=== PATIENT | female | born 1955 | race Hispanic/Latino ===

== ENCOUNTER 2021-02-10 18:22 | Inpatient (IN) | payer OTHER, MEDICARE ==
[~2021-02-10] VITALS: Ht 157.5 cm; Wt 84.2 kg
[2021-02-10 18:29] VITALS: BP 183/88
[2021-02-10] MEDS ORDERED: PROMETHAZINE HCL 25 MG/ML 1ML AMPULE IM ONE (18:45)
[2021-02-10] MEDS ORDERED: LIDOCAINE HCL 2% VISCOUS 15 ML UDCUP PO ONE (18:45)
[2021-02-10] MEDS ORDERED: MORPHINE 4 MG SYG IVP ONE (18:45)
[2021-02-10] MEDS ORDERED: NACL 0.9% 1000ML 1,000 ML IV ONE (18:45)
[2021-02-10] MEDS ORDERED: FAMOTIDINE 20MG VIAL IV ONE (18:45)
[2021-02-10 19:03] LABS: APPEARANCE,URINE Clear (CLEAR); BILIRUBIN,URINE Negative (NEGATIVE); COLOR,URINE Yellow (YELLOW); GLUCOSE, URINE (UA) Negative (NEGATIVE); KETONES,URINE Trace mg/dL (NEGATIVE); LEUKOCYTE ESTERASE ,URINE Moderate (NEGATIVE); NITRATE,URINE Negative (NEGATIVE); OCCULT BLOOD,URINE Negative (NEGATIVE); PROTEIN,URINE Negative (NEGATIVE)
[2021-02-10 19:07] LABS: BASOPHILS % (AUTO) 0.3 % (0.0-5.0); EOSINOPHILS % (AUTO) 0.6 % (0.0-8.0); HEMATOCRIT 45.6 % (36-48); MEAN CORPUSCULAR HEMOGLOBIN 28.7 pg (27.0-33.0); MEAN CORPUSCULAR HGB CONC 32.5 g/dL (32.0-36.0); MEAN CORPUSCULAR VOLUME 88.5 fL (79-99); MONOCYTES % (AUTO) 3.7 % (3.0-13.0); NEUTROPHILS % (AUTO) 89.8 % (40.0-77.0); PLATELET COUNT (AUTO) 235 K/uL (130-400); RED BLOOD CELL COUNT(AUTO) 5.15 MIL/uL (4.00-5.50); RED CELL DISTRIBUTION WIDTH 12.8 % (11.0-15.5); WHITE BLOOD COUNT (AUTO) 18.1 K/uL (4.8-10.8)
[2021-02-10 19:13] LABS: RBC,URINE 0-1 /HPF (0-1)
[2021-02-10 19:14] LABS: BACTERIA,URINE Rare /HPF (None Seen); MUCUS,URINE Rare LPF (None Seen); SQUAMOUS EPITHELIAL CELL,UR Rare /HPF (0-2); TRANSITIONAL EPI CELLS,URINE Rare /HPF (None Seen)
[2021-02-10 19:17] LABS: CREATININE 0.9 mg/dL (0.5-1.5)
[2021-02-10 19:22] LABS: ALBUMIN 3.9 g/dL (3.5-5.0); BILIRUBIN,TOTAL 1.4 mg/dL (0.2-1.0); TOTAL PROTEIN, SERUM 8.4 g/dL (6.0-8.3)
[2021-02-10] MEDS ORDERED: MAG/ALUM/SIMETH 30 ML UDCUP ONE (19:37)
[2021-02-10] MEDS ORDERED: ONDANSETRON 4MG INJ ONE (19:37)
[2021-02-10] MEDS ORDERED: PIP/TAZ ZOSYN 3.375G 3.375 GM VIAL IVPB ONE (20:45)
[2021-02-10] MEDS ORDERED: 0.9% NACL 50ML 50 ML IV.SOLN. IV ONE (20:45)
[2021-02-10] MEDS ORDERED: KCL 20 MEQ ERTAB PO ONE (20:45)
[2021-02-10] MEDS ORDERED: ZOSYN 3.375GM+NS 50ML 50 ML IV ONE (21:00)
[2021-02-10] MEDS ORDERED: 0.9%NACL 100ML 100 ML ONE (21:07)
[2021-02-10] MEDS ORDERED: IOHEXOL 350 MG/ML 100ML INFUS..BTL IV ONE (21:28)
[2021-02-10] MEDS: METRONIDAZOLE 500MG/100ML BAG 100 ML IV SCH (22:00)
[2021-02-10] MEDS ORDERED: ACETAMINOPHEN 325 MG TAB PO PRN ×2 (22:00)
[2021-02-10] MEDS ORDERED: NITROGLYCERIN 0.4 MG SL TAB SL PRN (22:00)
[2021-02-10] MEDS ORDERED: GUAIFENESIN-DM 200/20 MG 10 ML PO PRN (22:00)
[2021-02-10] MEDS ORDERED: KETOROLAC 15MG/ML VIAL (15MG/ML) IM SCH (22:15)
[2021-02-10] MEDS ORDERED: POTASSIUM CHLORIDE 10% ELIXIR 20 MEQ/15 ML UDCUP PO PRN (22:15)
[2021-02-10] MEDS ORDERED: DEXTROSE 50%-WATER 50 ML DISP.SYRIN IV PRN (22:15)
[2021-02-10] MEDS ORDERED: GLUCAGON 1MG KIT 1 MG ML IM PRN (22:15)
[2021-02-10 22:17] VITALS: BP 159/75
[2021-02-10] MEDS: NACL 0.9% 1000ML 1,000 ML IV SCH (23:19)
[2021-02-10] MEDS: HYDROMORPHONE 1 MG INJ IV PRN (23:19)
[2021-02-11] VITALS (7 sets, daily range): BP systolic 133–160; BP diastolic 61–89
[2021-02-11] MEDS: NACL 0.9% 1000ML 1,000 ML IV SCH ×3 (03:05→18:00)
[2021-02-11] MEDS: METRONIDAZOLE 500MG/100ML BAG 100 ML IV SCH ×3 (06:00→22:00)
[2021-02-11] MEDS: KCL 20 MEQ ERTAB PO PRN (06:53)
[2021-02-11 07:00] LABS: HEMATOCRIT 41.5 % (36-48); MEAN CORPUSCULAR HEMOGLOBIN 29.4 pg (27.0-33.0); MEAN CORPUSCULAR HGB CONC 32.5 g/dL (32.0-36.0); MEAN CORPUSCULAR VOLUME 90.4 fL (79-99); RED BLOOD CELL COUNT(AUTO) 4.59 MIL/uL (4.00-5.50); RED CELL DISTRIBUTION WIDTH 13.3 % (11.0-15.5); WHITE BLOOD COUNT (AUTO) 13.3 K/uL (4.8-10.8)
[2021-02-11] MEDS ORDERED: LABETALOL 20MG SYG IV PRN (07:00)
[2021-02-11] MEDS ORDERED: CEFTRIAXONE 2GM VIAL IVP SCH (07:00)
[2021-02-11 07:14] LABS: ALBUMIN 3.1 g/dL (3.5-5.0); BILIRUBIN,TOTAL 1.1 mg/dL (0.2-1.0); CREATININE 0.8 mg/dL (0.5-1.5); POTASSIUM 4.1 mmol/L (3.5-5.1); TOTAL PROTEIN, SERUM 6.9 g/dL (6.0-8.3)
[2021-02-11] MEDS: INSULIN HUMULIN R 100 UNIT/ML 3ML SQ SCH ×3 (07:30→21:00)
[2021-02-11] MEDS: HYDROMORPHONE 1 MG INJ IV PRN (08:04)
[2021-02-11] MEDS: ENOXAPARIN SODIUM 40 MG/0.4 ML SYRINGE SQ SCH (08:05)
[2021-02-11] MEDS: ONDANSETRON 4MG INJ IV PRN (08:05)
[2021-02-11] MEDS: FAMOTIDINE 20MG VIAL IV SCH ×2 (08:06→09:12)
[2021-02-11] MEDS ORDERED: PIP/TAZ ZOSYN 3.375G 3.375 GM VIAL IVPB SCH (08:15)
[2021-02-11] MEDS ORDERED: 0.9% NACL 50ML 50 ML IV SCH (08:30)
[2021-02-11] MEDS: ASPIRIN 81MG CHEW TAB PO SCH (10:43)
[2021-02-11] MEDS ORDERED: GADOTERATE MEGLUMINE 10 MMOL/20 ML VIAL IV ONE (10:57)
[2021-02-11 11:24] LABS: CHOLESTEROL 180 mg/dL (<200); HDL CHOLESTEROL 80 mg/dL (35-85); LDL DIRECT 87 mg/dL (0-99); TRIGLYCERIDES 43 mg/dL (30-200)
[2021-02-11 11:43] LABS: INR 1.05 (0.85-1.15); PROTHROMBIN TIME 11.4 SEC (9.6-11.6)
[2021-02-11 11:45] LABS: PARTIAL THROMBOPLASTIN TIME 33.4 SEC (26.3-35.5)
[2021-02-11] MEDS ORDERED: ZOSYN 3.375GM+NS 50ML 50 ML IV ONE (14:22)
[2021-02-11] MEDS: ZOSYN 3.375 IV SCH ×2 (14:31→22:03)
[2021-02-11] MEDS: HYDROMORPHONE 0.5 MG SYG (0.5MG/0.5ML) IVP PRN ×2 (16:32→22:05)
[2021-02-11] MEDS: ATORVASTATIN 20 MG TABLET PO SCH (22:04)
[2021-02-11] MEDS: ZOLPIDEM TARTRATE 5 MG TAB PO PRN (22:05)
[2021-02-12] VITALS (7 sets, daily range): BP systolic 122–172; BP diastolic 68–86
[2021-02-12] MEDS: NACL 0.9% 1000ML 1,000 ML IV SCH ×4 (00:40→21:00)
[2021-02-12] MEDS: HYDROMORPHONE 0.5 MG SYG (0.5MG/0.5ML) IVP PRN ×3 (05:03→22:58)
[2021-02-12 07:03] LABS: BASOPHILS % (AUTO) 0.1 % (0.0-5.0); EOSINOPHILS % (AUTO) 0.5 % (0.0-8.0); HEMATOCRIT 40.5 % (36-48); LYMPHOCYTES % (AUTO) 5.4 % (21.0-51.0); MEAN CORPUSCULAR HEMOGLOBIN 28.9 pg (27.0-33.0); MEAN CORPUSCULAR HGB CONC 31.9 g/dL (32.0-36.0); MEAN CORPUSCULAR VOLUME 90.6 fL (79-99); MONOCYTES % (AUTO) 4.9 % (3.0-13.0); NEUTROPHILS % (AUTO) 88.7 % (40.0-77.0); PLATELET COUNT (AUTO) 188 K/uL (130-400); RED BLOOD CELL COUNT(AUTO) 4.47 MIL/uL (4.00-5.50); RED CELL DISTRIBUTION WIDTH 13.6 % (11.0-15.5)
[2021-02-12 07:14] LABS: CREATININE 0.7 mg/dL (0.5-1.5); MAGNESIUM 1.7 mg/dL (1.80-2.40); POTASSIUM 3.8 mmol/L (3.5-5.1)
[2021-02-12] MEDS: INSULIN HUMULIN R 100 UNIT/ML 3ML SQ SCH ×4 (07:30→21:00)
[2021-02-12] MEDS ORDERED: ZOSYN 3.375GM+NS 50ML 50 ML IV ONE (08:36)
[2021-02-12] MEDS: METRONIDAZOLE 500MG/100ML BAG 100 ML IV SCH ×3 (08:45→22:36)
[2021-02-12] MEDS: FAMOTIDINE 20MG VIAL IV SCH ×2 (09:00→09:43)
[2021-02-12] MEDS: ASPIRIN 81MG CHEW TAB PO SCH (09:43)
[2021-02-12] MEDS: ENOXAPARIN SODIUM 40 MG/0.4 ML SYRINGE SQ SCH (09:46)
[2021-02-12] MEDS ORDERED: HYDROMORPHONE 1 MG INJ IV PRN (10:15)
[2021-02-12] MEDS: ONDANSETRON 4MG INJ IV PRN (11:07)
[2021-02-12 14:27] LABS: BASOPHILS % (AUTO) 0.3 % (0.0-5.0); EOSINOPHILS % (AUTO) 1.1 % (0.0-8.0); HEMATOCRIT 39.3 % (36-48); LYMPHOCYTES % (AUTO) 6.8 % (21.0-51.0); MEAN CORPUSCULAR HGB CONC 31.6 g/dL (32.0-36.0); MONOCYTES % (AUTO) 5.5 % (3.0-13.0); NEUTROPHILS % (AUTO) 85.9 % (40.0-77.0); PLATELET COUNT (AUTO) 173 K/uL (130-400); RED BLOOD CELL COUNT(AUTO) 4.27 MIL/uL (4.00-5.50); RED CELL DISTRIBUTION WIDTH 13.5 % (11.0-15.5); WHITE BLOOD COUNT (AUTO) 13.7 K/uL (4.8-10.8)
[2021-02-12 14:33] LABS: CREATININE 0.8 mg/dL (0.5-1.5); POTASSIUM 3.8 mmol/L (3.5-5.1)
[2021-02-12 14:37] LABS: ALBUMIN 2.5 g/dL (3.5-5.0); BILIRUBIN,TOTAL 1.4 mg/dL (0.2-1.0); TOTAL PROTEIN, SERUM 6.1 g/dL (6.0-8.3)
[2021-02-12] MEDS: HYDROMORPHONE 1 MG INJ IVP SCH ×5 (17:04→22:33)
[2021-02-12] MEDS: KETOROLAC 30MG VIAL (30MG/ML) IV SCH (18:00)
[2021-02-12] MEDS: 0.9% NACL 50ML 50 ML IV SCH (21:02)
[2021-02-12] MEDS: ATORVASTATIN 20 MG TABLET PO SCH (21:03)
[2021-02-12] MEDS: ZOSYN 3.375GM +NS 50ML IV SCH (21:03)
[2021-02-13] MEDS: KETOROLAC 30MG VIAL (30MG/ML) IV SCH ×5 (00:10→23:28)
[2021-02-13] MEDS ORDERED: ATOR10 PO (00:18)
[2021-02-13] MEDS ORDERED: AEC81 PO (00:18)
[2021-02-13] MEDS: HYDROMORPHONE 1 MG INJ IVP SCH ×11 (00:33→21:51)
[2021-02-13] MEDS: NACL 0.9% 1000ML 1,000 ML IV SCH ×3 (02:58→18:31)
[2021-02-13] MEDS: HYDROMORPHONE 0.5 MG SYG (0.5MG/0.5ML) IVP PRN (03:14)
[2021-02-13 03:48] VITALS: BP 156/83
[2021-02-13] MEDS: 0.9% NACL 50ML 50 ML IV SCH ×2 (05:01→14:32)
[2021-02-13] MEDS: ZOSYN 3.375GM +NS 50ML IV SCH ×2 (05:01→14:32)
[2021-02-13 05:03] LABS: HEMATOCRIT 36.7 % (36-48); MEAN CORPUSCULAR HEMOGLOBIN 29.7 pg (27.0-33.0); MEAN CORPUSCULAR HGB CONC 32.4 g/dL (32.0-36.0); MEAN CORPUSCULAR VOLUME 91.5 fL (79-99); RED BLOOD CELL COUNT(AUTO) 4.01 MIL/uL (4.00-5.50); RED CELL DISTRIBUTION WIDTH 13.4 % (11.0-15.5); WHITE BLOOD COUNT (AUTO) 12.7 K/uL (4.8-10.8)
[2021-02-13 05:16] LABS: ALBUMIN 2.3 g/dL (3.5-5.0); BILIRUBIN,TOTAL 1.1 mg/dL (0.2-1.0); CREATININE 0.6 mg/dL (0.5-1.5); POTASSIUM 3.6 mmol/L (3.5-5.1)
[2021-02-13] MEDS: METRONIDAZOLE 500MG/100ML BAG 100 ML IV SCH ×2 (05:56→14:32)
[2021-02-13] MEDS: INSULIN HUMULIN R 100 UNIT/ML 3ML SQ SCH ×4 (06:46→21:00)
[2021-02-13 07:30] VITALS: BP 135/61
[2021-02-13] MEDS: ASPIRIN 81MG CHEW TAB PO SCH (09:00)
[2021-02-13] MEDS: FAMOTIDINE 20MG VIAL IV SCH ×2 (09:00→11:04)
[2021-02-13] MEDS: ENOXAPARIN SODIUM 40 MG/0.4 ML SYRINGE SQ SCH (09:00)
[2021-02-13 11:00] VITALS: BP 156/84
[2021-02-13] MEDS ORDERED: IOHEXOL-350 75 ML VIAL IV ONE (14:39)
[2021-02-13 16:00] VITALS: BP 176/76
[2021-02-13] MEDS: ONDANSETRON 4MG INJ IV PRN (18:30)
[2021-02-13 20:22] VITALS: BP 161/80
[2021-02-13] MEDS: ATORVASTATIN 20 MG TABLET PO SCH (21:00)
[2021-02-13 23:25] VITALS: BP 150/71
[2021-02-14] VITALS (26 sets, daily range): BP systolic 120–189; BP diastolic 67–98
[2021-02-14] MEDS: HYDROMORPHONE 1 MG INJ IVP SCH ×10 (01:01→18:33)
[2021-02-14] MEDS: NACL 0.9% 1000ML 1,000 ML IV SCH ×3 (02:12→21:48)
[2021-02-14] MEDS: ENOXAPARIN SODIUM 40 MG/0.4 ML SYRINGE SQ SCH (03:29)
[2021-02-14] MEDS: KETOROLAC 30MG VIAL (30MG/ML) IV SCH ×3 (03:59→19:02)
[2021-02-14] MEDS: INSULIN HUMULIN R 100 UNIT/ML 3ML SQ SCH ×4 (05:11→21:00)
[2021-02-14 06:02] LABS: HEMATOCRIT 35.1 % (36-48); MEAN CORPUSCULAR HEMOGLOBIN 28.5 pg (27.0-33.0); MEAN CORPUSCULAR HGB CONC 31.9 g/dL (32.0-36.0); MEAN CORPUSCULAR VOLUME 89.3 fL (79-99); RED BLOOD CELL COUNT(AUTO) 3.93 MIL/uL (4.00-5.50); RED CELL DISTRIBUTION WIDTH 13.2 % (11.0-15.5); WHITE BLOOD COUNT (AUTO) 12.3 K/uL (4.8-10.8)
[2021-02-14 06:21] LABS: ALBUMIN 2.2 g/dL (3.5-5.0); BILIRUBIN,TOTAL 0.8 mg/dL (0.2-1.0); CREATININE 0.6 mg/dL (0.5-1.5); POTASSIUM 3.2 mmol/L (3.5-5.1)
[2021-02-14] MEDS: HYDROMORPHONE 0.5 MG SYG (0.5MG/0.5ML) IVP PRN (06:42)
[2021-02-14] MEDS: MAGNESIUM 2GM PREMIX 50ML 50 ML IV PRN (06:42)
[2021-02-14] MEDS: ASPIRIN 81MG CHEW TAB PO SCH (09:00)
[2021-02-14] MEDS: FAMOTIDINE 20MG VIAL IV SCH ×2 (09:00→10:18)
[2021-02-14] MEDS ORDERED: ONDANSETRON 4MG INJ ONE (11:41)
[2021-02-14] MEDS ORDERED: LIDOCAINE PF 100MG/5ML (2%) SYRINGE 5ML ONE (11:41)
[2021-02-14] MEDS ORDERED: PROPOFOL 10 MG/ML 20ML VIAL IV ONE (11:42)
[2021-02-14] MEDS ORDERED: ROCURONIUM 10MG/1ML SYR 10 MG/ML ML ONE (11:42)
[2021-02-14] MEDS ORDERED: FENTANYL CITRATE PF 50 MCG/1 ML 2ML VIAL ONE ×2 (11:43)
[2021-02-14] MEDS ORDERED: MIDAZOLAM HCL 1 MG/ML 2ML VIAL ONE (11:46)
[2021-02-14] MEDS ORDERED: BUPIVACAINE/PF 0.25% 30ML VIAL IJ ONE (11:56)
[2021-02-14] MEDS ORDERED: LIDOCAINE HCL 1% 20 ML VIAL ONE (12:22)
[2021-02-14] MEDS ORDERED: BUPIVACAINE/EPI/PF 0.25% 30ML VIAL IJ ONE (12:22)
[2021-02-14] MEDS ORDERED: ZOSYN 3.375GM+NS 50ML 50 ML IV ONE (13:01)
[2021-02-14] MEDS ORDERED: NEOSTIGMINE 5MG/5ML SYR IV ONE (13:43)
[2021-02-14] MEDS ORDERED: GLYCOPYRROLATE 1 MG/5 ML SYRINGE ONE (13:43)
[2021-02-14] MEDS ORDERED: KETOROLAC 30MG VIAL (30MG/ML) ONE (13:54)
[2021-02-14] MEDS ORDERED: METOCLOPRAMIDE 10 MG/2 ML VIAL ONE (14:16)
[2021-02-14] MEDS: ONDANSETRON 4MG INJ IV PRN (14:21)
[2021-02-14] MEDS ORDERED: OXYCODONE/ACETAMIN 5/325MG TAB PO PRN (16:00)
[2021-02-14] MEDS: 0.9% NACL 50ML 50 ML IV SCH (16:50)
[2021-02-14] MEDS: ZOSYN 3.375GM +NS 50ML IV SCH (16:50)
[2021-02-14] MEDS ORDERED: LABETALOL 20MG VIAL IV ONE (19:21)
[2021-02-14] MEDS: ATORVASTATIN 20 MG TABLET PO SCH (21:48)
[2021-02-14] MEDS ORDERED: CLONIDINE HCL 0.1 MG TABLET PO PRN (22:30)
[2021-02-14] MEDS ORDERED: FUROSEMIDE 20MG VIAL IV ONE (22:30)
[2021-02-14] MEDS: PHARMACY COMMUNICATION MISC SCH (22:45)
[2021-02-14] MEDS ORDERED: KETOROLAC 30MG VIAL (30MG/ML) IV PRN (22:45)
[2021-02-14] MEDS ORDERED: HYDROMORPHONE 1 MG INJ ONE (22:56)
[2021-02-14 23:17] LABS: INR 1.07 (0.85-1.15); PROTHROMBIN TIME 11.6 SEC (9.6-11.6)
[2021-02-14 23:18] LABS: PARTIAL THROMBOPLASTIN TIME 30.2 SEC (26.3-35.5)
[2021-02-15] MEDS: 0.9% NACL 50ML 50 ML IV SCH ×3 (01:03→17:51)
[2021-02-15] MEDS: ZOSYN 3.375GM +NS 50ML IV SCH ×3 (01:03→17:51)
[2021-02-15 04:14] VITALS: BP 172/73
[2021-02-15] MEDS: PHARMACY COMMUNICATION MISC SCH ×4 (04:45→22:45)
[2021-02-15] MEDS: INSULIN HUMULIN R 100 UNIT/ML 3ML SQ SCH ×4 (05:49→21:00)
[2021-02-15 08:45] VITALS: BP 183/83
[2021-02-15] MEDS: ENOXAPARIN SODIUM 40 MG/0.4 ML SYRINGE SQ SCH (09:10)
[2021-02-15] MEDS: ASPIRIN 81MG CHEW TAB PO SCH (09:10)
[2021-02-15] MEDS: ONDANSETRON 4MG INJ IV PRN (09:11)
[2021-02-15] MEDS: FAMOTIDINE 20MG VIAL IV SCH (09:11)
[2021-02-15 12:00] VITALS: BP 177/82
[2021-02-15 17:11] VITALS: BP 153/75
[2021-02-15 19:45] LABS: ALBUMIN 2.4 g/dL (3.5-5.0); BILIRUBIN,TOTAL 0.7 mg/dL (0.2-1.0); CREATININE 0.6 mg/dL (0.5-1.5); TOTAL PROTEIN, SERUM 6.3 g/dL (6.0-8.3)
[2021-02-15 19:47] LABS: POTASSIUM 2.8 mmol/L (3.5-5.1)
[2021-02-15] MEDS ORDERED: LIDOCAINE HCL-MPF 1% 2ML VIAL ONE (19:56)
[2021-02-15 20:02] VITALS: BP 175/81
[2021-02-15] MEDS: POTASSIUM CHLORIDE 20MEQ/100ML 100 ML IV PRN (20:16)
[2021-02-15] MEDS: LIDOCAINE HCL-MPF 1% 2ML VIAL IV PRN (20:16)
[2021-02-15] MEDS: NACL 0.9% 1000ML 1,000 ML IV SCH (20:18)
[2021-02-15] MEDS: ATORVASTATIN 10 MG TABLET PO SCH (20:18)
[2021-02-15] MEDS: ZOLPIDEM TARTRATE 5 MG TAB PO PRN (21:56)
[2021-02-15 23:39] VITALS: BP 166/79
[2021-02-16] MEDS: LIDOCAINE HCL-MPF 1% 2ML VIAL IV PRN ×2 (00:29→05:54)
[2021-02-16] MEDS: POTASSIUM CHLORIDE 20MEQ/100ML 100 ML IV PRN ×3 (00:30→10:30)
[2021-02-16] MEDS: ONDANSETRON 4MG INJ IV PRN (01:08)
[2021-02-16] MEDS: ZOSYN 3.375GM +NS 50ML IV SCH ×4 (01:08→23:26)
[2021-02-16] MEDS: 0.9% NACL 50ML 50 ML IV SCH ×4 (01:43→23:26)
[2021-02-16 03:43] VITALS: BP 170/88
[2021-02-16] MEDS: PHARMACY COMMUNICATION MISC SCH ×2 (04:45→19:22)
[2021-02-16 05:11] LABS: BASOPHILS % (AUTO) 0.4 % (0.0-5.0); EOSINOPHILS % (AUTO) 0.1 % (0.0-8.0); HEMATOCRIT 36.9 % (36-48); LYMPHOCYTES % (AUTO) 8.7 % (21.0-51.0); MEAN CORPUSCULAR HEMOGLOBIN 28.9 pg (27.0-33.0); MEAN CORPUSCULAR HGB CONC 33.6 g/dL (32.0-36.0); NEUTROPHILS % (AUTO) 78.7 % (40.0-77.0); NUCLEATED RED BLOOD CELLS 0.1 % (0.0-0.19); PLATELET COUNT (AUTO) 213 K/uL (130-400); RED BLOOD CELL COUNT(AUTO) 4.29 MIL/uL (4.00-5.50); RED CELL DISTRIBUTION WIDTH 13.2 % (11.0-15.5); WHITE BLOOD COUNT (AUTO) 13.8 K/uL (4.8-10.8)
[2021-02-16 05:28] LABS: ALBUMIN 2.3 g/dL (3.5-5.0); BILIRUBIN,TOTAL 0.7 mg/dL (0.2-1.0); CREATININE 0.6 mg/dL (0.5-1.5); TOTAL PROTEIN, SERUM 6.1 g/dL (6.0-8.3)
[2021-02-16 05:41] LABS: POTASSIUM 2.7 mmol/L (3.5-5.1)
[2021-02-16 07:21] VITALS: BP 155/79
[2021-02-16] MEDS: INSULIN HUMULIN R 100 UNIT/ML 3ML SQ SCH ×4 (07:30→19:32)
[2021-02-16] MEDS ORDERED: LIDOCAINE HCL-MPF 1% 2ML VIAL IV PRN (08:45)
[2021-02-16] MEDS ORDERED: POTASSIUM CHLORIDE 20MEQ/100ML 100 ML IV PRN (08:45)
[2021-02-16] MEDS: ASPIRIN 81MG CHEW TAB PO SCH (09:04)
[2021-02-16] MEDS: ENOXAPARIN SODIUM 40 MG/0.4 ML SYRINGE SQ SCH (09:05)
[2021-02-16] MEDS: FAMOTIDINE 20MG VIAL IV SCH (09:05)
[2021-02-16 11:22] VITALS: BP 170/85
[2021-02-16] MEDS: NACL 0.9% 1000ML 1,000 ML IV SCH ×2 (12:26→19:37)
[2021-02-16 15:29] VITALS: BP 139/77
[2021-02-16] MEDS: KCL 20 MEQ ERTAB PO PRN ×3 (17:55→22:08)
[2021-02-16] MEDS: MAGNESIUM 2GM PREMIX 50ML 50 ML IV PRN (18:45)
[2021-02-16] MEDS: ATORVASTATIN 10 MG TABLET PO SCH (19:37)
[2021-02-16 20:00] VITALS: BP 153/83
[2021-02-16 23:49] VITALS: BP 139/84
[2021-02-17 04:00] VITALS: BP 149/74
[2021-02-17 05:27] LABS: MAGNESIUM 2.1 mg/dL (1.80-2.40); POTASSIUM 3.4 mmol/L (3.5-5.1)
[2021-02-17] MEDS: INSULIN HUMULIN R 100 UNIT/ML 3ML SQ SCH ×2 (06:03→11:30)
[2021-02-17] MEDS: KCL 20 MEQ ERTAB PO PRN ×2 (06:34→09:05)
[2021-02-17 07:20] VITALS: BP 151/76
[2021-02-17] MEDS: ASPIRIN 81MG CHEW TAB PO SCH (09:05)
[2021-02-17] MEDS: FAMOTIDINE 20MG VIAL IV SCH (09:05)
[2021-02-17] MEDS: ZOSYN 3.375GM +NS 50ML IV SCH (09:06)
[2021-02-17] MEDS: 0.9% NACL 50ML 50 ML IV SCH (09:06)
[2021-02-17] MEDS: ENOXAPARIN SODIUM 40 MG/0.4 ML SYRINGE SQ SCH (09:06)
[2021-02-17 12:10] VITALS: BP 140/74
== END 2021-02-17 15:00 | disposition home or self-care (01) | DRG 417 ==
LOC: EDH 18:22 → OBSVTOIN 21:10 → EDHIP 21:10 → 3CH 02-12 21:40
PROVIDERS: ADMIT Internal Medicine Critical Care Medicine; ATTEND Internal Medicine Critical Care Medicine
PROC: 0FT44ZZ Resection of Gallbladder, Percutaneous Endoscopic Approach (ICD-10-PCS; principal; 2021-02-14 12:37)
DX: K80.00 Calculus of gallbladder with acute cholecystitis without obstruction (principal); K85.10 Biliary acute pancreatitis without necrosis or infection; N39.0 Urinary tract infection, site not specified; K76.89 Other specified diseases of liver; E87.6 Hypokalemia; E78.5 Hyperlipidemia, unspecified; E66.9 Obesity, unspecified; Z68.32 Body mass index [BMI] 32.0-32.9, adult; K82.8 Other specified diseases of gallbladder; Z79.82 Long term (current) use of aspirin; Z79.899 Other long term (current) drug therapy; Z87.442 Personal history of urinary calculi; Z20.822 Contact with and (suspected) exposure to COVID-19
CPT/HCPCS: 36415; 71045; 73562; 74177; 74183; 76705; 80048; 80053; 80061; 81001; 82150; 82948; 83690; 83735; 84132; 84478; 84484; 85025; 85027; 85610; 85730; 87088; 87635; 93005; G0378; J0696; J1170; J1650; J1885; J2001; J2250; J2270; J2405; J2543; J2550; J2704; J2710; J2765; J3010; J3475; J3480; J3490; J7030; Q9967

== ENCOUNTER 2024-08-15 10:37 | Emergency (ER) | payer OTHER, MEDICARE ==
[~2024-08-15] VITALS: Ht 157.5 cm; Wt 73.5 kg
[~2024-08-15 10:37] MED LIST: AEC81 PO; ATOR10 PO
--- NOTE | 2024-08-15 10:56 | ERN ---
General Chief Complaint: Hypertension Stated Complaint: HTN Time Seen by MD: 10:42 Time Seen by Midlevel: 10:42 Source: patient, EMS History of Present Illness Initial Comments Patient is a 69-year-old female no significant past medical history being brought in by EMS for evaluation of blurred vision and high blood pressure. Patient states that this morning she developed blurred vision to both eyes so she decided to check her blood pressure and it was 170 systolic she decided to c all EMS for further evaluation. Patient does not take anything for high blood pressure. Patient states the only medication she takes his atorvastatin patient only takes it when she remembers. Denies taking any other medication at this time. On arrival she specifically denies any headache, chest pain, shortness for breath, or any other symptoms at this time. Allergies: Coded Allergies: No Known Drug Allergies (Unverified Allergy, Unknown, 02/10/21) Home Meds Active Scripts Nitrofurantoin/Nitrofuran Mac (Macrobid) 100 Mg Cap, 1 CAP PO BID for 5 Days, #10 CAP 0 Refills Prov:JACQUI FRANK 08/15/24 Reported Medications Atorvastatin Calcium (LIPITOR) 20 Mg Tab, 20 MG PO HS, TAB 02/13/21 Aspirin (ASPIRIN 81 MG ECTAB) 81 Mg Ectab, 81 MG PO DAILY, TAB.EC 02/13/21 Past Medical History Past Medical History: High Cholesterol Past Surgical History: Cholecystectomy, Surgical History Other: C SECTION Family History Family History: Negative Social History Social History: Negative Female( History) History: Not Applicable ROS Dictation CONSTITUTIONAL: Negative except for HPI HEAD/FACE: Negative except for HPI EENT: Negative except for HPI RESPIRATORY: Negative except for HPI GASTROINTESTINAL/ABDOMINAL: Negative except for HPI GENITOURINARY: Negative except for HPI MUSCULOSKELETAL: Negative except for HPI INTEGUMENTARY: Negative except for HPI NEUROLOGICAL/PSYCH: Negative except for HPI HEMATOLOGIC/LYMPHATIC: Negative except for HPI All Systems Negative, Except as noted above. 13 point review of systems assessed and all negative except for above. Physical Exam Physical Exam Dictation Vital Signs reviewed General Appearance: Alert, oriented x 3, no acute distress, well developed, nourished. Head and Face: non-traumatic. Eyes: PERRL, pink conjunctivas, eyelid no trauma, anterior chamber with arcus senilis. Ears: Pinnas intact and no signs of trauma or erythema ear canals clear and no discharge TM no erythema Nose: No discharge, no bleeding. Oropharynx: Mouth normal, tongue pink, pharynx clear,no erythema, tonsils no exudates, no abscesses noted, mucous membrane moist Neck: Supple, non-tender, no thyromegaly, no masses, no JVD, no bruits Breast:Deferred Chest:No tenderness, no crepitus, no paradoxical movement, no retractions Lungs:Clear, well-ventilated, symmetric, no rales, no wheezing, no rhonchi, no stridor, good breath sounds bilaterally Heart: Regular rate, regular rhythm, no murmur, no gallops Vascular: no peripheral edema, Abdomen: Soft, positive bowel sounds, nondistended, no guarding, nontender, no rebound, no masses no hepatomegaly, no splenomegaly, no Fowler's sign, no hernias. Rectal: Deferred Genital: Deferred Neurological: Normal speech, motor function intact, sensory function intact Musculoskeletal: Neck nontender, full range of motion, back nontender, full range of motion, Extremities: nontender, full range of motion Skin: Color pink, dry, no turgor, no rash, no lacerations, no abrasions, no contusions. Lymphatic: Deferred Results Laboratory and Microbiology Lab and Micro Result Laboratory Tests Test 08/15/24 11:05 08/15/24 11:53 White Blood Count 9.8 K/uL (4.8-10.8) Red Blood Count 4.71 MIL/uL (4.00-5.50) Hemoglobin 14.3 g/dL (12.0-16.0) Hematocrit 43.0 % (36-48) Mean Corpuscular Volume 91.3 fL (79-99) Mean Corpuscular Hemoglobin 30.4 pg (27.0-33.0) Mean Corpuscular Hemoglobin Concent 33.3 g/dL (32.0-36.0) Red Cell Distribution Width 12.4 % (11.0-15.5) Platelet Count 200 K/uL (130-400) Mean Platelet Volume 10.9 fL (7.5-10.5) H Immature Granulocyte % (Auto) 0.7 % (0-1) Neutrophils (%) (Auto) 85.8 % (40.0-77.0) H Lymphocytes (%) (Auto) 10.0 % (21.0-51.0) L Monocytes (%) (Auto) 2.7 % (3.0-13.0) L Eosinophils (%) (Auto) 0.3 % (0.0-8.0) Basophils (%) (Auto) 0.5 % (0.0-5.0) Neutrophils # (Auto) 8.4 K/uL (1.8-7.7) H Lymphocytes # (Auto) 1.0 K/uL (1.0-4.8) Monocytes # (Auto) 0.3 K/uL (0.1-1.0) Eosinophils # (Auto) 0.03 K/uL (0.00-0.70) Basophils # (Auto) 0.05 K/uL (0.00-0.20) Absolute Immature Granulocyte (auto 0.07 K/uL (0-1) Nucleated Red Blood Cells 0.0 % (0.0-0.19) White Cell Morphology Comment See comments Sodium Level 145 mmol/L (136-145) Potassium Level 3.8 mmol/L (3.5-5.1) Chloride Level 108 mmol/L (101-111) Carbon Dioxide Level 29 mmol/L (21-32) Blood Urea Nitrogen 12 mg/dL (7-18) Creatinine 0.7 mg/dL (0.5-1.0) Glomerular Filtration Rate Calc 93 mL/min (>90) Random Glucose 99 mg/dL (70-105) Total Calcium 9.1 mg/dL (8.5-10.1) Magnesium Level 2.00 mg/dL (1.80-2.40) Total Creatine Kinase 79 U/L (21-232) Troponin I High Sensitivity 7 ng/L (4-50) B-Type Natriuretic Peptide 65 pg/mL (0-100) Urine Color COLORLESS (YELLOW) Urine Appearance CLEAR (CLEAR) Urine pH 6.0 (5.0-8.0) Urine Specific [place] 1.004 (1.001-1.031) Urine Protein NEGATIVE mg/dL (NEGATIVE) Urine Glucose (UA) NEGATIVE mg/dL (NEGATIVE) Urine Ketones NEGATIVE mg/dL (NEGATIVE) Urine Occult Blood NEGATIVE (NEGATIVE) Urine Nitrate NEGATIVE (NEGATIVE) Urine Bilirubin NEGATIVE mg/dL (NEGATIVE) Urine Urobilinogen 0.2 mg/dL (0.2-1.0) Urine Leukocyte Esterase 25 Manas/uL (NEGATIVE) H Urine RBC 0-1 /HPF (0-1) Urine WBC 2-5 /HPF (0-1) H Urine Bacteria MANY /HPF (None Seen) Labs Reviewed?: Yes MDM MDM: Patient is a 69-year-old female no significant past medical history being brought in by EMS for evaluation of blurred vision and high blood pressure. Patient states that this morning she developed blurred vision to both eyes so she decided to check her blood pressure and it was 170 systolic she decided to call EMS for further evaluation. Patient does not take anything for high blood pressure. Patient states the only medication she takes his atorvastatin patient only takes it when she remembers. Denies taking any other medication at this time. On arrival she specifically denies any headache, chest pain, shortness for breath, or any other symptoms at this time. On physical examination patient is in no acute distress. Her neurological examination is unremarkable. Patient has a GCS of 15. Initial blood pressure is elevated with a systolic blood pressure of 190. Cardiac workup was initiated which is unremarkable. CT scan of the head does not show any acute intracranial abnormality. Blood pressure in the emergency department has been trending in the 170s systolic. Patient was given clonidine 0.1 I advised she keep a blood pressure log at home and show this to her primary care doctor. She may need to potentially be started on high blood pressure medications. Patient agrees with this plan and is comfortable for discharge at this time. Differential diagnosis: Hypertensive urgency, essential hypertension, hypertensive emergency, ACS, dehydration, electrolyte abnormality There are no social concerns with this patient. Prescription drug management Prescriptions will include: Macrobid Medical management and examination interpretation discussions were had by me with other qualified healthcare professionals as indicated for the patient's care. ED Course Orders Procedure Category Date Status Time 12 Lead Ekg Tracing- EKG 08/15/24 Logged Technical 10:49 B-Type Natriuretic LAB 08/15/24 Complete Peptide 10:49 Cbc With Differential LAB 08/15/24 Complete 10:49 Basic Metabolic Panel LAB 08/15/24 Complete 10:49 Creatine Kinase, Total LAB 08/15/24 Complete 10:49 Magnesium LAB 08/15/24 Complete 10:49 Troponin I High LAB 08/15/24 Complete Sensitivity 10:49 Urinalysis Profile LAB 08/15/24 Complete 10:49 Ct Head/Brain W/O CT 08/15/24 Resulted Contrast 10:49 Culture Urine JIHAN 08/15/24 Logged 13:07 Clonidine Hcl 0.1 Mg PHA 08/15/24 In Process Tablet (Catapres 0. 21:00 Current Medications Medications (Trade) Dose Ordered Sig/Aj Route PRN Reason Start Time Stop Time Status Last Admin Dose Admin Clonidine HCl (CATApres 0.1 mg TAB) 0.1 mg BID PO 08/15/24 21:00 09/14/24 20:59 Vital Signs Date Time Temp Pulse Resp B/P (MAP) Pulse Ox O2 Delivery O2 Flow Rate FiO2 08/15/24 13:08 98.1 68 18 175/85 98 Room Air* 0 08/15/24 11:58 98.4 68 18 174/85 98 Room Air* 0 08/15/24 10:41 98.1 78 16 190/86 99 Room Air* 0 08/15/24 10:41 98.1 78 16 190/86 99 Room Air [address] [address] IMAGING REPORT Signed PATIENT: RANDY DAVE MR#: [id number] : 1955 SEX: F AGE: 69 LOCATION: [facility] ORDER 1050 STATUS: REG ER REPORT#: [id number] SERVICE 1049 REASON: hypertensive urgency/blurred vision ORDERING PHYSICIAN: JACQUI FRANK PROCEDURE: HEAD WO - CT HEAD/BRAIN W/O CONTRAST CT HEAD/BRAIN W/O CONTRAST HISTORY: Hypertensive urgency COMPARISON: None TECHNIQUE: Multiple sequential axial images of the head were obtained from the base of the skull through vertex. Patient was not given contrast through intravenous route. FINDINGS: The ventricles and extraventricular CSF spaces are nondilated for patient's age. There is no midline shift, mass effect or herniation. No acute intracranial bleed is seen. Visualized portion of the paranasal sinuses are grossly within normal limits. IMPRESSION: 1. No acute intracranial bleed is seen. CT was performed with one or more following dose reduction techniques: automated exposure control, adjustment of the mA and kv according to patient's size, or use of a iterative reconstruction technique. DICTATED BY: CRISELDA LENNON MD DATE: 08/15/24 125 ELECTRONICALLY SIGNED BY: CRISELDA LENNON MD DATE: 08/15/24 1302 HEART Score Response (Comments) Value History: Low suspicion (0) 0 EKG: Normal 0 Age: > 65yrs (+2) 2 Risk Factors: No known risk factors (0) 0 Initial Troponin: Normal limit (0) 0 HEART Score Risk: Low Risk for MACE (1-3) Total 2 DX & DISP Disposition: Discharge Departure Impression: Primary Impression: Elevated blood pressure reading Additional Impression: Urinary tract infection Condition: Stable Scripts Nitrofurantoin/Nitrofuran Mac (Macrobid) 100 Mg Cap 1 CAP PO BID for 5 Days, #10 CAP 0 Refills Prov: JACQUI FRANK 08/15/24 Additional Instructions: Your blood work today is unremarkable. Your cardiac enzymes are negative. Your EKG does not show any evidence of a heart attack. Your CT scan of the head does not show any acute intracranial abnormality. Your urinalysis shows evidence of infection. I will send you home with a prescription for antibiotics. Your blood pressure was elevated in the emergency department with a systolic blood pressure in the 170s. You will need to check your blood pressure over the next week. Check your blood pressure every day in the morning and before going to bed and write it down on a notepad. You will need to show these numbers to your primary care doctor and potentially you will need to be started on blood pressure medication. If you develop any new or worsening symptoms please report to the ER for further evaluation. Referrals: SANDRA YU DO (PCP) Time of Disposition: 13:16 I have reviewed the case, and I agree with, Diagnosis and Plan I performed the substantive portion of the visit. I have reviewed and personally made and approve the management plan that is documented in the note by myself or the DELMA. I acknowledge for responsibility for the patient's management plan. JACQUI FRANK Aug 15, 2024 10:56
[2024-08-15 11:24] LABS: BASOPHILS # (AUTO) 0.05 K/uL (0.00-0.20); BASOPHILS % (AUTO) 0.5 % (0.0-5.0); EOSINOPHILS # (AUTO) 0.03 K/uL (0.00-0.70); EOSINOPHILS % (AUTO) 0.3 % (0.0-8.0); IMMATURE GRANULOCYTE ABSOLUTE 0.07 K/uL (0-1); MEAN CORPUSCULAR HEMOGLOBIN 30.4 pg (27.0-33.0); MEAN CORPUSCULAR HGB CONC 33.3 g/dL (32.0-36.0); MEAN CORPUSCULAR VOLUME 91.3 fL (79-99); MONOCYTES # (AUTO) 0.3 K/uL (0.1-1.0); MONOCYTES % (AUTO) 2.7 % (3.0-13.0); NEUTROPHILS # (AUTO) 8.4 K/uL (1.8-7.7); NEUTROPHILS % (AUTO) 85.8 % (40.0-77.0); PLATELET COUNT (AUTO) 200 K/uL (130-400); RED BLOOD CELL COUNT(AUTO) 4.71 MIL/uL (4.00-5.50); RED CELL DISTRIBUTION WIDTH 12.4 % (11.0-15.5); WHITE BLOOD COUNT (AUTO) 9.8 K/uL (4.8-10.8)
[2024-08-15 11:34] LABS: CREATININE 0.7 mg/dL (0.5-1.0); POTASSIUM 3.8 mmol/L (3.5-5.1)
--- NOTE | 2024-08-15 11:48 | NUR ---
NO MEDS TO RECONCILE, STATES DOES NOT TAKE ANY PRESCRIBED MEDS OR SUPPLEMENTS
[2024-08-15 11:51] LABS: B-TYPE NATRIURETIC PEPTIDE 65 pg/mL (0-100)
[2024-08-15 12:37] LABS: APPEARANCE,URINE CLEAR (CLEAR); BILIRUBIN,URINE NEGATIVE (NEGATIVE); COLOR,URINE COLORLESS (YELLOW); GLUCOSE, URINE (UA) NEGATIVE (NEGATIVE); KETONES,URINE NEGATIVE (NEGATIVE); LEUKOCYTE ESTERASE ,URINE 25 Leu/uL (NEGATIVE); NITRATE,URINE NEGATIVE (NEGATIVE); OCCULT BLOOD,URINE NEGATIVE (NEGATIVE); PROTEIN,URINE NEGATIVE (NEGATIVE); UROBILINOGEN,URINE 0.2 mg/dL (0.2-1.0)
[2024-08-15 12:53] LABS: ADD UA MICROSCOPIC YES
[2024-08-15 13:00] LABS: BACTERIA,URINE MANY /HPF (None Seen); RBC,URINE 0-1 /HPF (0-1)
--- NOTE | 2024-08-15 13:02 | HMCIMG ---
CT HEAD/BRAIN W/O CONTRAST HISTORY: Hypertensive urgency COMPARISON: None TECHNIQUE: Multiple sequential axial images of the head were obtained from the base of the skull through vertex. Patient was not given contrast through intravenous route. FINDINGS: The ventricles and extraventricular CSF spaces are nondilated for patient's age. There is no midline shift, mass effect or herniation. No acute intracranial bleed is seen. Visualized portion of the paranasal sinuses are grossly within normal limits. IMPRESSION: 1. No acute intracranial bleed is seen. CT was performed with one or more following dose reduction techniques: automated exposure control, adjustment of the mA and kv according to patient's size, or use of a iterative reconstruction technique.
[2024-08-15 13:08] VITALS: RESP 18; TEMP 98.1; O2SAT 98
[2024-08-15] MEDS ORDERED: MACR100 PO (13:18)
[2024-08-15 13:23] VITALS: BP 174/85; PULSE 68
[2024-08-15] MEDS: cloNIDine HCL 0.1 MG TABLET ONE (13:23)
[2024-08-15] MEDS: cloNIDine HCL 0.1 MG TABLET PO SCH (13:23)
--- NOTE | 2024-08-16 08:45 | EKG ---
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
== END 2024-08-15 13:28 | disposition home or self-care (01) ==
LOC: EDH 10:37
DX: R03.0 Elevated blood-pressure reading, without diagnosis of hypertension (principal); N39.0 Urinary tract infection, site not specified; E78.00 Pure hypercholesterolemia, unspecified; Z79.82 Long term (current) use of aspirin; Z90.49 Acquired absence of other specified parts of digestive tract
CPT/HCPCS: 36415; 70450; 80048; 81001; 82550; 83735; 83880; 84484; 85025; 87086; 87186; 93005; 99284